=== PATIENT | male | born 1950 | race Caucasian/White ===

== ENCOUNTER 2020-04-22 16:40 | Emergency (ER) | payer MEDICARE, OTHER ==
[~2020-04-22] VITALS: Ht 180.3 cm; Wt 94.5 kg
--- NOTE | 2020-04-22 17:18 | PHYS DOC ---
Adult General Chief Complaint Chief Complaint: ALTERED MENTAL STATUS HPI HPI Patient is a 70-year-old male patient presents emergency department complaining that he has felt lightheaded for the past week or so. Patient also states that he feels like he cannot hear very well and describes that it seems his right ear is plugged up and his left ear is only partially plugged up. Patient reports that his hearing loss for the past week as well. Patient's son states that he was with him a few days ago and noticed that the patient had been speaking louder than normal. The patient's son also reports that he has noticed some periods of confusion from the patient over the last day or 2. Patient reports seeing his eye doctor yesterday and stated his eye doctor told him that he needs a different prescription for his eyes stating that his eyes are getting better now and this could have caused some of his dizziness sensations because he is wearing his old glasses. Patient reports taking daily puffs of albuterol, takes Metformin 500 mg twice daily, and takes an unknown dose of lisinopril daily. Patient reports that he seen his primary care provider ROJAS Damon this past week who took labs but has not gotten back with him yet. Patient denies any other physical complaints or physical symptoms. Patient son is at bedside and provided partial HPI. (KACY MORE APRN) Review of Systems Review of Systems 14 body systems of review of systems have been reviewed. See HPI for pertinent positives and negative responses, otherwise all other systems are negative, nonpertinent or noncontributory. (KACY MORE APRN) Current Medications Current Medications Patient reports taking albuterol MDI, Metformin 500 mg p.o. twice daily, lisinopril unknown dose daily. (KACY MORE APRN) Allergies Allergies Allergies Coded Allergies Type Severity Reaction Last Updated Verified No Known Drug Allergies 04/22/20 No (KACY MORE APRN) Physical Exam Physical Exam Constitutional: Well developed, well nourished, no acute distress, non-toxic appearance. HENT: Normocephalic, atraumatic, bilateral external ears normal, oropharynx moist, no oral exudates, nose normal. Bilateral cerumen impaction, unable to appreciate visualization of tympanic membrane of either ear. Eyes: PERRLA, EOMI, conjunctiva normal, no discharge. Neck: Normal range of motion, no tenderness, supple, no stridor. Cardiovascular:Heart rate regular rhythm, no murmur Lungs & Thorax: Bilateral breath sounds clear to auscultation Abdomen: Bowel sounds normal, soft, no tenderness, no masses, no pulsatile masses. Skin: Warm, dry, no erythema, no rash. Back: No tenderness, no CVA tenderness. Extremities: No tenderness, no cyanosis, no clubbing, ROM intact, no edema. Neurologic: Alert and oriented X 3, normal motor function, normal sensory function, no focal deficits noted. NIHSS score 0, negative Denison-Hallpike maneuver. Orthostatic blood pressures as follows lying: Heart rate 70, 137/79, sitting: Heart rate 72, 131/80, standing: Heart rate 70, 113/73, patient did not complain of dizziness or other neuro deficits during orthostatic blood pressu res. Psychologic: Affect normal, judgement normal, mood normal. (KACY MORE APRN) Current Patient Data Lab Results Laboratory Tests Test 04/22/20 16:54 04/22/20 17:00 Glucose (Fingerstick) 113 mg/dL White Blood Count 12.7 x10^3/uL Red Blood Count 4.59 x10^6/uL Hemoglobin 15.0 g/dL Hematocrit 43.9 % Mean Corpuscular Volume 96 fL Mean Corpuscular Hemoglobin 33 pg Mean Corpuscular Hemoglobin Concent 34 g/dL Red Cell Distribution Width 13.9 % Platelet Count 357 x10^3/uL Neutrophils (%) (Auto) 72 % Lymphocytes (%) (Auto) 17 % Monocytes (%) (Auto) 7 % Eosinophils (%) (Auto) 3 % Basophils (%) (Auto) 1 % Neutrophils # (Auto) 9.1 x10^3uL Lymphocytes # (Auto) 2.2 x10^3/uL Monocytes # (Auto) 0.9 x10^3/uL Eosinophils # (Auto) 0.4 x10^3/uL Basophils # (Auto) 0.1 x10^3/uL Sodium Level 140 mmol/L Potassium Level 4.0 mmol/L Chloride Level 103 mmol/L Carbon Dioxide Level 25 mmol/L Anion Gap 12 Blood Urea Nitrogen 20 mg/dL Creatinine 1.1 mg/dL Estimated GFR (Cockcroft-Gault) 66.6 BUN/Creatinine Ratio 18 Glucose Level 104 mg/dL Calcium Level 8.6 mg/dL Total Bilirubin 0.4 mg/dL Aspartate Amino Transf (AST/SGOT) 58 U/L Alanine Aminotransferase (ALT/SGPT) 82 U/L Alkaline Phosphatase 49 U/L Troponin I Quantitative < 0.017 ng/mL Total Protein 7.8 g/dL Albumin 3.5 g/dL Albumin/Globulin Ratio 0.8 Current Medications Medications (Trade) Dose Ordered Sig/Angelica Route PRN Reason Start Time Stop Time Status Last Admin Dose Admin Sodium Chloride 1,000 ml @ 1,000 mls/hr 1X ONCE IV 04/22/20 17:45 04/22/20 18:44 04/22/20 17:56 Laboratory Tests Test 04/22/20 16:54 Glucose (Fingerstick) 113 mg/dL (70-99) H (KACY MORE APRN) EKG EKG EKG performed 1723 by [facility] respiratory therapy shows a normal sinus rhythm with a heart rate of 71 bpm, ME interval 0.160, QTc interval 0.431, no acute STEMI, no ACS, no acute ischemia noted, EKG interpreted by ED attending physician Dr. Celis (KACY MORE APRN) Radiology/Procedures Radiology/Procedures SEX: M EXAM STATUS: PRE ER ORD. PHYSICIAN: KACY MORE APRN REASON: LIGHTHEADED WITH HEADACHE ONSET A FEW WEEKS AGO PROCEDURE: CT HEAD WO CONTRAST STUDY: CT head without contrast INDICATION: Lightheadedness. Headache. COMPARISON: None. TECHNIQUE: Axial CT imaging through the head without the use of intravenous contrast. Sagittal and coronal reformats were obtained. One or more of the following individualized dose reduction techniques were utilized for this examination: 1. Automated exposure control 2. Adjustment of the mA and/or kV according to patient size 3. Use of iterative reconstruction technique. FINDINGS: Multifocal parenchymal low-attenuation involving both cerebral hemispheres and most pronounced within the posterior right temporal lobe and bilateral occipital lobes. Much of this low-attenuation is subcortical but there is some cortical involvement such as left occipital. Asymmetric low attenuation and soft tissue prominence involving and adjacent to the right aspect of the splenium of the corpus callosum with associated localized effacement of the right lateral ventricle, image 17 series 2. The left lateral ventricule is more prominent than the right but there is no shift and only minimal asymmetry of the temporal horns. There appears to be faint low-attenuation within the left aspect of the midbrain on image 11 series 2. No acute intracranial hemorrhage. No focal calvarial abnormality. IMPRESSION: Abnormal cortical and subcortical low-attenuation at several locations throughout both cerebral hemispheres. The right aspect of the splenium of the corpus callosum is asymmetrically prominent relative to the left and there is partial effacement of the adjacent right lateral ventricle. Possible low- attenuation within the left aspect of the midbrain (image 11 series 2). Multifocal infarcts need to be excluded but the distribution is unusual as is the provided history for ischemic events. Metastatic disease should be considered and MRI with and without contrast will allow for differentiation. FOR INTERNAL CODING PURPOSES Critical result: Findings discussed with Dr. Celis on 04/22/2020 at 5:50 PM. RESULT CODE: (C) Electronically signed by: PIA RODRIGUEZ MD (04/22/2020 5:59 PM) [id number] DICTATED AND SIGNED BY: PIA RODRIGUEZ MD DATE: 04/22/20 1739 CC: KACY MORE APRN; NINO CELIS DO; SILVESTRE DAMON PA ~MTH0 0 (KACY MORE APRN) Heart Score Risk Factors: Risk Factors: DM, Current or recent (<one month) smoker, HTN, HLP, family history of CAD, obesity. Risk Scores: Risk Factors: DM, Current or recent (<one month) smoker, HTN, HLP, family history of CAD, obesity. (KACY MORE APRN) Course & Med Decision Making Course & Med Decision Making Pertinent Labs and Imaging studies reviewed. (See chart for details) 70-year-old patient presents emergency department with complaints of dizziness, hard of hearing over the past week. The patient's son was at bedside and also gave concerns of the patient has had an acute change of mental status noting that he has been forgetful for the past day or so. The patient does have a history of diabetes, fingerstick blood sugar was performed equaling 113. An immediate bedside NIHSS was performed equaling 0. Serum labs and imaging of the head was ordered. Pending at this time Patient is orthostatic blood pressures concerning for dehydration, 1 L normal saline bolus initiated. Patient serum labs were equivocal, however CT head was concerning for abnormal cortical and subcortical low attenuation in several locations throughout the cerebral hemispheres. Multiple infarcts need to be excluded per house radiologist interpretation. Recommended MRI with and without contrast. House radiologist Dr. Rodriguez spoke with the ED attending Dr. Celis on the phone regarding this abnormal CT. Related to the abnormal CT, ED attending Dr. Celis recommended I contact inpatient services for admission to [facility] ter for follow-up of abnormal head CT. Discussed case with [facility] inpatient physician Dr. Vegas who agreed to assume patient care and transfer from [place] emergency department to [facility] inpatient med telemetry unit. Discussed admission to [facility] under the care of Dr. Vegas with patient who is amendable to this plan. Transfer forms initiated awaiting transfer from [place] ER to [facility]. Discussed with patient past medical history regarding cancer screening. Patient states that he has had a normal colonoscopy starting at age 52, again at age 62, and again at age 67. Patient also reports that he has had yearly physicals with his primary care provider who does a manual prostate exam along with PSA testing, patient reports that his primary care provider has not told him of any abnormalities with either of these tests. Patient does reveal being a smoker greater than 50 years ago when he was in the [employer] and considered himself a recreational smoker and smoked only a few cigarettes per week or month while he was in the [employer]. (KACY MORE APRN) Course & Med Decision Making I oversaw on the above date of service of this patient and discussed the care with the BOX [facility]. I reviewed the case, saw patient he was hemodynamically stable but with concerning CT head imaging findings that require continued work-up in an inpatient setting. Patient to be transferred to facility with neurologist/MRI capabilities. I agree with the findings, plan of care, and disposition as documented. (NINO CELIS DO) Heidion Disclaimer Dragon Disclaimer This electronic medical record was generated, in whole or in part, using a voice recognition dictation system. (KACY MORE APRN) Departure Departure: Impression: Primary Impression: Dizziness Additional Impressions: Abnormal head CT Confusion Disposition: 02 DC/TRF OTHER SHORT TERM HOS Admitting Physician: Other ([facility] (KACY MORE APRN) Admitting Physician: Other (Dr[facility] Sk[facility]) (NINO CELIS DO) Condition: GUARDED Referrals: SILVESTRE DAMON (PCP) NIHSS - ED NIH Stroke Scale: NIH Stroke Scale Response (Comments) Value Level of Consciousness: 0 Alert/Responsive 0 LOC Questions: 0 Answers both correctly 0 LOC Commands: 0 Performs both tasks 0 Best Gaze: 0 Normal 0 Visual: 0 No visual loss 0 Facial Palsy: 0 Normal, symmetrical 0 Motor - Left Arm 0 No drift 0 Motor - Right Arm 0 No drift 0 Motor - Left Leg 0 No drift 0 Motor: Right Leg 0 No drift 0 Limb Ataxia: 0 Absent 0 Sensory: 0 No loss 0 Best Language: 0 Normal 0 Dysathria: 0 Normal 0 Extinction and Inattention: 0 Normal 0 Total 0 Problem Qualifiers KACY MORE APRN Apr 22, 2020 17:17 NINO CELIS DO Apr 23, 2020 06:12
[2020-04-22 17:28] LABS: BASO # 0.1 x10^3/uL (0.0-0.2); BASO % 1 % (0-3); EOS # 0.4 x10^3/uL (0.0-0.7); EOS % 3 % (0-3); HEMATOCRIT 43.9 % (39.0-53.0); LYMPH # 2.2 x10^3/uL (1.0-4.8); LYMPH % 17 % (24-48); MEAN CORPUSCULAR HEMOGLOBIN 33 pg (25-35); MEAN CORPUSCULAR HGB CONC 34 g/dL (31-37); MEAN CORPUSCULAR VOLUME 96 fL (79-100); MONO # 0.9 x10^3/uL (0.0-1.1); MONO % 7 % (0-9); NEUT # 9.1 x10^3uL (1.8-7.7); NEUT % 72 % (31-73); PLATELET COUNT 357 x10^3/uL (140-400); RED BLOOD COUNT 4.59 x10^6/uL (4.30-5.70); RED CELL DISTRIBUTION WIDTH 13.9 % (11.5-14.5); WHITE BLOOD COUNT 12.7 x10^3/uL (4.0-11.0)
[2020-04-22 17:38] LABS: CALCIUM 8.6 mg/dL (8.5-10.1); CREATININE 1.1 mg/dL (0.7-1.3); GFR 66.6
[2020-04-22 17:44] LABS: ALBUMIN 3.5 g/dL (3.4-5.0); ALBUMIN/GLOBULIN RATIO 0.8 (1.0-1.7); TOTAL BILIRUBIN 0.4 mg/dL (0.2-1.0); TOTAL PROTEIN 7.8 g/dL (6.4-8.2)
[2020-04-22] MEDS ORDERED: IV NORMAL SALINE 1,000ML 1,000 ML IV ONE (17:45)
--- NOTE | 2020-04-22 18:03 | RAD ---
STUDY: CT head without contrast INDICATION: Lightheadedness. Headache. COMPARISON: None. TECHNIQUE: Axial CT imaging through the head without the use of intravenous contrast. Sagittal and co lorena reformats were obtained. One or more of the following individualized dose reduction techniques were utilized for this examinat ion: 1. Automated exposure control 2. Adjustment of the mA and/or kV according to patient size 3. Use of iterative reconstruction technique. FINDINGS: Multifocal parenchymal low-attenuation involving both cerebral hemispheres and most pronounced within the posterior right temporal lobe and bilateral occipital lobes. Much of this low-attenuation is sub cortical but there is some cortical involvement such as left occipital. Asymmetric low attenuation an d soft tissue prominence involving and adjacent to the right aspect of the splenium of the corpus faye losum with associated localized effacement of the right lateral ventricle, image 17 series 2. The lef t lateral ventricule is more prominent than the right but there is no shift and only minimal asymmetr y of the temporal horns. There appears to be faint low-attenuation within the left aspect of the midbrain on image 11 series 2 . No acute intracranial hemorrhage. No focal calvarial abnormality. IMPRESSION: Abnormal cortical and subcortical low-attenuation at several locations throughout both cerebral hemis pheres. The right aspect of the splenium of the corpus callosum is asymmetrically prominent relative to the left and there is partial effacement of the adjacent right lateral ventricle. Possible low-att enuation within the left aspect of the midbrain (image 11 series 2). Multifocal infarcts need to be e xcluded but the distribution is unusual as is the provided history for ischemic events. Metastatic di sease should be considered and MRI with and without contrast will allow for differentiation. FOR INTERNAL CODING PURPOSES Critical result: Findings discussed with Dr. Sung on 04/22/2020 at 5:50 PM. RESULT CODE: (C) Electronically signed by: PIA RODRIGUEZ MD (04/22/2020 5:59 PM) [id number]
--- NOTE | 2020-04-22 18:09 | EKG ---
[address] [address] Test Date: 2020-04-22 Test Time: 17:24:00 Pat Name: CHRISTOPHER CALDERON Department: Room: Gender: M Senior [address] Engineer: MERI : 1950 Requested By: KACY MORE Order Number: [id number] Reading MD: Measurements Intervals [place] Rate: 71 P: 26 MN: 160 QRS: -13 QRSD: 94 T: -23 QT: 392 QTc: 431 Interpretive Statements SINUS RHYTHM LEFTWARD AXIS T ABNORMALITY IN ANTERIOR LEADS INFERIOR LEADS ABNORMAL ECG RI6.02 No previous ECG available for comparison
--- NOTE | 2020-04-22 20:46 | RAD ---
EXAMINATION: XR CHEST 2V CLINICAL HISTORY: Dizziness EXAM DATE/TIME: 04/22/2020 7:10 PM COMPARISON: None FINDINGS: Lines, Tubes, and Devices: None. Cardiomediastinal Silhouette: Normal heart size. Lungs and Pleura: No evidence of focal airspace consolidation or pleural effusion. Pulmonary vasculat ure unremarkable. Bones and Soft Tissues: Degenerative changes of the thoracic spine. IMPRESSION: No evidence of acute cardiopulmonary abnormality. Electronically signed by: Hung Field DO (04/22/2020 8:41 PM) VESNA
[2020-04-22 21:05] VITALS: BP 118/67
== END 2020-04-22 21:30 | disposition short-term general hospital (02) ==
LOC: ER 16:40
DX: R42 Dizziness and giddiness (principal); R41.0 Disorientation, unspecified; R93.0 Abnormal findings on diagnostic imaging of skull and head, not elsewhere classified; H61.23 Impacted cerumen, bilateral
CPT/HCPCS: 36415; 70450; 71046; 80053; 82947; 84484; 85025; 93005; 96360; 99285; J7030